=== PATIENT | female | born 1950 | race Caucasian/White ===

== ENCOUNTER → 2023-08-01 06:50 | Outpatient (REF) | payer OTHER, SELFPAY ==
[2023-08-01 07:50] LABS: ALT (SGPT) 12 U/L (0-35); AST (SGOT) 19 U/L (14-36); Alkaline Phosphatase 81 U/L (38-126); Blood Urea Nitrogen 14 mg/dl (7-17); Calcium 9.4 mg/dl (8.4-10.2); Carbon Dioxide 26 mmol/L (22-30); Chloride 101 mmol/L (98-107); Glucose 114 mg/dl (70-99); Potassium 3.4 mmol/L (3.5-5.1); Sodium 138 mmol/L (135-145); Total Bilirubin 0.9 mg/dl (0.2-1.3); Total Protein 6.9 g/dl (6.3-8.2); eGFR > 60.00
== END ==
LOC: REG 06:50
PROVIDERS: ATTENDING PHYSICIAN Internal Medicine Cardiovascular Disease
DX: I10 Essential (primary) hypertension (principal)
CPT/HCPCS: 36415; 80053

== ENCOUNTER 2024-03-27 23:05 | Inpatient (IN) | payer OTHER, SELFPAY ==
[2024-03-27] VITALS (8 sets, daily range): BP systolic 134–156; BP diastolic 75–86; BMI 31.3
--- NOTE | 2024-03-27 20:12 | ED.GENMED ---
History of Present Illness
General
Chief Complaint: Breathing Problem
Time Seen by Provider: 03/27/24 20:05
History of Present Illness
History of Present Illness:
73-year-old female history of CHF, hypertension, GERD presenting with shortness of breath with lower extremity swelling worsening over the past week and a half. Patient denies chest pain. Patient reports a dry cough. Patient denies fever.
Patient states that she has not on any diuretic. Cardiology Dr. Blank. Patient states she is typically 160 pounds, today she is at 170lbs. Patient states that she has had to use extra pillows to prop her self up to sleep at night.
Past History
Past History
ED Past Medical History: None
Social History
Personal:
Phy Exam
Physical Exam
Physical Exam:
General: Alert
Head: NCAT
Eyes: clear conjunctiva
Neck: supple
Cardiac: Tachycardic, regular rhythm
Lungs: Rales bilaterally alf up. Patient tachypneic speaking in 4-5 word sentences
Abdomen: soft, nondistended nontender. No rebound or guarding.
MSK: 2+ pitting edema bilateral lower extremities. 2+ DP pulses bilaterally.
Skin: warm, dry
Neuro: Alert and oriented x3. no focal deficits
Scores
Heart Failure Risk
Heart Failure Risk Score: Yes
History of Stroke or TIA: No
History of intubation for respiratory distress: No
Heart rate on ED arrival >/= 110: Yes
SaO2 <90% on arrival on room air: Yes
HR >/=110 during 3min walk test (or too ill to perform test): Yes
ECG has acute ischemic changes: No
Urea >/=12mmol/L (BUN 33.6mg/dL): No
Serum CO2>/=35mmol/L: No
Troponin I or T elevated to MD Level (0.4mg/dL): No
NT-proBNP >/=5,000ng/L (5,000pg/ml): Yes
HF Risk Score: 4
Admission Status: HIGH RISK 26.1% Consider SNF treatment or admission to hospital
Course
Orders/Labs/Results
Orders:
Orders
03/27/24 19:53
Electrocardiogram (*1) Urgent
Reason for Study: Shortness of Breath
03/27/24 19:54
EKG- Treatment ONCE
03/27/24 19:56
COVID-19 Antigen Urgent
Source: Nasal Swab
Complete Blood Count/With Diff Urgent
Comprehensive Metabolic Panel Urgent
NT-proBNP Urgent
Troponin I Urgent
Influenza A+B Rapid Molecular Urgent
PACHECO Source: Nasal Swab
Specimen Description:
03/27/24 20:16
Furosemide [Lasix] 40 mg IV NOW STA
CXR2 [CR Chest - 2 Views ] Urgent
Comment:
Reason For Exam: sob, hx chf
03/27/24 22:34
Admit/Transfer Patient As Directed
Co-Sign Provider:
Level of Care: Inpatient admission
Assign to:: Telemetry
Physician / Group: hospitalist
Diagnosis: CHF
Reason for Telemetry: Subacute Heart Failure
Date to Stop Telemetry: 03/29/24
Time to Stop Telemetry: 11:00
Reason for Hospitalization: Heart Failure
Expected length of stay greater than two midnights?: Yes
ELOS- Estimated Length of Stay in days: 2
I certify the patient meets the requirements for IP care: Yes
PRN Pain Medication Management As Directed
May give lesser potent ordered pain med per pt: Yes
preference::
Protocol:: Medication orders for pain may be administered in a
manner that supports deferring to patient preference
when the pt is:
- Requesting an ordered lesser potent pain medication.
Least to most potent pain medications are defined
as: acetaminophen < NSAID < tramadol < opioids
(morphine, oxycodone, hydromorphone).
- Requesting a lesser dose of the same medication IF
ORDERED.
- Requesting a less intrusive route of administration
if both routes are prescribed by the provider (PO <
IV).
03/27/24 22:35
Code Status As Directed
Resuscitation Status: Full Code
03/27/24 22:50
Potassium Chloride [KCl] 40 meq PO NOW STA
03/27/24 23:02
DNR Bracelet Application ONCE
03/27/24 23:03
Code Status As Directed
Resuscitation Status: Do not resuscitate
Reached after discussion with pt or family/Healthcare POA: Yes
Based on pt advanced directive or healthcare POA form: Yes
Decision communicated with: Per patient with male family members at bedside
03/27/24 23:18
Troponin I Urgent
03/29/24 11:00
DC Protocol for Telemetry ONCE
Abnormal Lab Results
03/27/24
19:56
RBC 3.70 L 10^6/uL
(4.20-5.40)
Hgb 8.6 L g/dL
(12.0-16.0)
Hct 28.6 L %
(37.0-47.0)
MCV 77.3 L fL
(81.0-99.0)
MCH 23.2 L pg
(27.0-31.0)
MCHC 30.1 L g/dL
(33.0-37.0)
RDW 16.5 H %
(11.5-14.5)
Absolute Neuts (auto) 6.6 H 10^3/uL
(1.4-6.5)
Neutrophils % 75.6 H %
(42.2-75.2)
Lymphocytes % 17.1 L %
(20.5-51.1)
BUN 20 H mg/dl
(7-17)
Glucose 126 H mg/dl
(70-99)
Troponin I 0.101 H* ng/ml
03/27/24 19:56
03/27/24 19:56
Vital Signs
Initial and Last Documented VS:
Initial Vital Signs
Temp Pulse Resp BP Pulse Ox
98.8 F 112 38 145/77 87
03/27/24 19:39 03/27/24 19:39 03/27/24 19:39 03/27/24 19:39 03/27/24 19:39
Last Documented Vital Signs
Temp Pulse Resp BP Pulse Ox
98.8 F 108 30 138/82 93
03/27/24 19:39 03/28/24 01:00 03/28/24 01:00 03/28/24 01:00 03/28/24 01:08
MDM/Problems Addressed
Differential Diagnosis Includes:
CHF, pneumonia, viral syndrome, NSTEMI, anemia
MDM/Problems Addressed:
73-year-old female history of CHF not on diuretic presenting with shortness of breath, lower extremity swelling, 10 pound weight gain worsening for the past 0.5 weeks. Patient denies chest pain. Lung exam shows crackles bilaterally alf up, 2+
pitting edema bilateral lower extremities. Concern for CHF. Will start on Lasix 40 mg IV
Results reviewed. Probnp 8100. Troponin 0.101. CXR shows pulmonary edema. Pt already received Lasix 40mg IV. Discussed with hospitalist for admission
*Critical Care Note
Total Time (30-74mins, 75-104mins- exclusive of procedures): Not Applicable
ED Attending Note
-
Portions of this chart may have been created with voice recognition software.� Occasional wrong word or��sound alike� substitutions may have occurred due to the inherent limitations of voice recognition software.
Discharge Plan
Departure
Patient Disposition: Admit
Date of Disposition: 03/27/24
Time of Disposition: 22:27
Presentation/result/management discussed w/ accepting MD/DO: Hospitalist
Discharge Problem:
CHF (congestive heart failure)
Interventions
Interventions:
*Risk Screen - Suicide Last Done: 03/27/24 19:33
*General Assessment Last Done: 03/27/24 19:39
*Neglect/Abuse Screening Last Done: 03/27/24 19:39
ED- Fall Risk Assessment Last Done: 03/27/24 20:13
*ED COVID-19 Vaccine History Last Done: 03/27/24 19:39
ED- Cardiac Assessment Last Done: 03/27/24 20:13
ED- Pulmonary Assessment Last Done: 03/27/24 20:13
[2024-03-27 20:21] LABS: % Basophils 0.7 % (0-2); % Eosinophils 1.2 % (0-6); % Immature Granulocytes 0.3 % (0-0.5); % Lymphocytes 17.1 % (20.5-51.1); % Monocytes 5.1 % (1.7-9.3); % Neutrophils 75.6 % (42.2-75.2); Absolute Basophils 0.1 10^3/uL (0-0.2); Absolute Eosinophils 0.1 10^3/uL (0-0.7); Absolute Lymphocytes 1.5 10^3/uL (1.2-3.4); Absolute Monocytes 0.4 10^3/uL (0.1-0.6); Absolute Neutrophils 6.6 10^3/uL (1.4-6.5); Hematocrit 28.6 % (37.0-47.0); Hemoglobin 8.6 g/dL (12.0-16.0); Mean Corp Hgb Conc. 30.1 g/dL (33.0-37.0); Mean Corpuscular Hgb 23.2 pg (27.0-31.0); Mean Corpuscular Volume 77.3 fL (81.0-99.0); Mean Platelet Volume 9.7 fL (7.4-10.4); Nucleated Red Blood Cells % 0 %; Platelet Count 312 10^3/uL (130-400); Red Cell Dist. Width 16.5 % (11.5-14.5); White Blood Cell Count 8.7 10^3/uL (4.8-10.8)
[2024-03-27 20:40] LABS: ALT (SGPT) 21 U/L (0-35); AST (SGOT) 28 U/L (14-36); Albumin 4.1 g/dl (3.5-5.0); Alkaline Phosphatase 89 U/L (38-126); Blood Urea Nitrogen 20 mg/dl (7-17); Calcium 8.9 mg/dl (8.4-10.2); Carbon Dioxide 22 mmol/L (22-30); Chloride 101 mmol/L (98-107); Estimated Creatinine Clearance 60 ml/min; Glucose 126 mg/dl (70-99); Potassium 3.5 mmol/L (3.5-5.1); Sodium 141 mmol/L (135-145); Total Bilirubin 1.3 mg/dl (0.2-1.3); Total Protein 6.8 g/dl (6.3-8.2); eGFR > 60.00
[2024-03-27 20:46] LABS: NT-proBNP 8100 pg/ml; Troponin I 0.101 ng/ml
[2024-03-27] MEDS: LASIX 40 MG IV (20:46)
[2024-03-27 21:05] LABS: COVID-19 Antigen Negative (Negative)
--- NOTE | 2024-03-27 22:36 | HPS.HSE ---
Family Physician
-
Family Physician: Go Montano
Chief Complaint
-
Shortness of breath, weight gain, nonproductive cough
History of Present Illness
73-year-old female complaining of shortness of breath with lower extremity swelling over the past 1.5 weeks. She also reports a dry cough and orthopnea. She has been using pillows to prop her self to sleep at night. She states she typically is
160 pounds but is currently 170 pounds today has gained 10 pounds in the last 1.5 weeks. She denies fever, chills, headache, sore throat, chest pain, palpitations, abdominal pain, nausea, vomiting, diarrhea, urinary symptoms, denies black stools or
hematuria. She has past medical history of CHF, iron deficiency anemia Dx October 2023 noncompliant with oral iron HTN, GERD, arthritis, myasthenia gravis, chronic back pain.
Medical History
Past Medical History
Past Medical History: Reports Other
Additional Past Medical History:
CHF
HTN
GERD
arthritis
myasthenia gravis
chronic back pain.
Iron deficiency anemia Dx October 2023 [facility]
Past Surgical History: Reports Other
Additional Past Surgical History:
Hysterectomy
[place] teeth extraction
Social History
Tobacco: Non-smoker
Alcohol: Occasional (Was drinking 1 glass of wine 2 to 3 days a week has not had any for the past few weeks)
Drug: None
Personal: Single
Living: Alone
Employment: Retired
Family History
Family History: Not pertinent
Allergies / Home Medications
Allergies reflects when Allergies were last updated in [facility].
Home Medications with original date entered in [facility]
Allergy/Medication List:
Allergies
Allergy/AdvReac Type Severity Reaction Status Date / Time
No Known Allergies Allergy Verified 03/27/24 19:42
Home Medications
Tylenol Arthritis 1,000 mg PO Q6H PRN mild pain 03/27/24
Review of Systems
-
History Source: Patient and Family
A 12 point ROS was completed and negative except as noted: Yes
Constitutional: Reports Weight Gain (10 pounds past 1.5 weeks) and Fatigue; Denies Fever or Chills
EENT: Denies Sore Throat or Runny Nose
Respiratory: Reports Cough (Nonproductive) and Trouble Breathing (Shortness of breath with orthopnea)
Cardiac: Denies Chest Pain, Diaphoresis, Palpitations or Syncope
Abdomen/GI: Denies Abdominal Pain, Nausea, Vomiting, Diarrhea, Constipated, Bloody Stools or Black Stools
: Denies Dysuria, Frequency, Flank Pain, Incontinence, Difficulty Voiding or Urgency
Musculoskeletal: Reports Edema (+2 edema from feet to upper thighs); Denies Joint Pain
Skin: Denies Itching or Rash
Neurological: Denies Dizzy, Headache or Weakness
Endocrine: Reports No Symptoms
Hematologic/Lymphatic: Reports No Symptoms
Psych: Reports Calm
Physical Exam
Vital Signs
Vital Signs
Temp Pulse Resp BP Pulse Ox
98.8 F 104 31 143/86 92
03/27/24 19:39 03/27/24 21:45 03/27/24 21:45 03/27/24 21:25 03/27/24 22:10
Physical Exam
General: Conversant (But short of breath) and Other (Persistent nonproductive cough during exam); No Pain, Fever or Chills
HEENT: NormoCephalic, Anicteric, Moist mucous membranes, PERRLA, Bud Conjunctivae, No Ptosis and Oxygen (2 L nasal cannula)
Respiratory: No Wheezes, Rales or Rhonchi
Cardiac: S1/S2, Regular Rhythm and Peripheral Edema (+2 edema from feet to upper thighs); No Murmur, Rub, Gallop or JVD
Breast: Deferred by me
GI: Soft, Non Tender, Non Distended and Normal Bowel Sounds
Rectal: Deferred by Provider
Genito-urinary: Deferred by me
Musculoskeletal: No Clubbing, No Cyanosis, Edema, Left Lower Extremity (+2 from feet to upper thighs) and Edema, Right Lower Extremity (+2 from feet to upper thighs); No Edema, Left Upper Extremity or Edema, Right Upper Extremity
Skin: Warm and Dry; No Rash or Jaundice
Neuro: AO x 3, No Motor Deficits, Nonfocal/grossly intact and No Sensory Deficits; No Slurred Speech, Facial Droop, Tremors or Sedated
Psych: Calm
Laboratory Results
-
03/27/24 19:56
03/27/24 19:56
Laboratory Results
Total Bilirubin 1.3 mg/dl (0.2-1.3) 03/27/24 19:56
AST 28 U/L (14-36) 03/27/24 19:56
ALT 21 U/L (0-35) 03/27/24 19:56
Alkaline Phosphatase 89 U/L (38-126) 03/27/24 19:56
Troponin I 0.101 ng/ml H* 03/27/24 19:56
Data Reviewed
-
Diagnostic Radiology: Report Reviewed by me
Lab Data: Labs Reviewed by me
Impression/Plan
-
Impression/plan:
Admit to telemetry
#Acute on chronic CHF
#Acute hypoxic respiratory insufficiency 2/2 acute on chronic CHF
BNP 8100, reported 10 pound weight gain past 1.5 weeks per patient 160lbs now 170 LBS
87% RA, 93% 2 LNC
I/O, daily weights
-IV Lasix 40 mg now with diuresis 1700 cc clear urine
-IV Lasix 20 mg twice daily
-Fluid restrict 40 ounce patient reports drinks 56 ounces approximately a day
-Consult [facility] cardiology
-Repeat 2D echo
-PT/OT/shoe caser consult
2D echo 09/22/2021: EF 55 to 60%, normal LVS LVSF, no wall abnormalities, mild LVH, stage I diastolic dysfunction, mild to moderate MR, mild TR, Hx LBBB
#Nonischemic myocardial injury likely from hypoxia
Hx of troponin elevation in 2013
Hx LBBB
Troponin 0.101, will trend
#Anemia Microcytic
# Iron deficiency anemia Dx October 2023 at [facility] noncompliant with oral iron
Hgb 8.6, MCV 77.3 prior Hgb from 2013 was 12.7
Check iron panel, B12, folate
-Advised patient if she is unable to tolerate oral iron I would recommend follow-up with hematology for iron checks in case she needs IV iron transfusions
#GERD hx
-No current meds
#Arthritis
#Chronic back pain
-Patient takes Tylenol 1000 mg every 6-8 hours as needed
#Myasthenia gravis hx
DVT prophylaxis
Subcu Lovenox
DNR per patient with family at bedside
--- NOTE | 2024-03-27 22:47 | W.PN.UPDATE ---
Update Note
Progress Note Update
Patient seen in conjunction with DELMY. I agree with her findings on history and physical. I concur with the assessment and plan unless stated otherwise.
This is a 73-year-old female with past medical history of a nonischemic cardiomyopathy, nonrheumatic mitral regurg mild to moderate by echo, hypertension, iron deficiency anemia and myasthenia gravis presenting to the emergency department with a
worsening shortness of breath and increasing lower extremity over the last 1-1/2 weeks. She is hypoxic at 87% on room air. Patient and family reports that there was a particularly rapid increase in LE over the last 2 days. She started with pedal
edema then rapidly had edema to the legs. Patient reports never having been on diuretics. Carvedilol was tried and discontinued due to depressive feeling. She has liberal salt intake and drinks copious quantities of water. She reports anemia to
8 at baseline and is not compliant with iron supplementation. She denies any recent chest pain and had no exertional dyspnea until 1.5 weeks ago. Denies palpitations, lightheadedness dizziness.
In the ED she was normotensive with tachycardia to 104. Respiratory was 30s. She was satting 85% on room air. Chest x-ray shows cardiomegaly with bilateral interstitial edema. Troponin was 0.1. BNP was elevated at 8100. ECG showed sinus
tachycardia and a left bundle branch block which is unchanged from prior. No acute ST-T wave changes. Hemoglobin down to 8.6 white count and platelet counts are within normal limits. Chemistries notable for a potassium of 3.5 but otherwise
unremarkable. COVID negative, flu negative.
On my exam she had JVD, bilateral crackles and 2+ bilateral LE edema to the thighs. She has increased WOB. Responded copiously to 40 of iv lasix with output of 2 L in 2 hours
Assessment and plan
73-year-old with new symptomatic heart failure with marked volume overload, hypoxia, pulm edema, cardiomegally, elevated BNP and trop of 0.1. Prior NICM EF 50% on ECHO but 30% on sestamibi. Never on diuretics or GDMT at least.
1. CHF - Acute CHF, volume overload possible high output failure from anemia or new ischemia.
- admit to telemetry
- lasix 40 in ED, then 20 bid with goal output of net 1 to 2 L negative daily
- daily weights and i/os
- echo in am
- iron studies and tsh
- possible ischemia testing per cards
- GDMT pending echo
- cardiology consult.
2. Troponin elevation - Trop 0.1, no acute ischemia on ECG. No CP. Hypoxia, tachycardia, likely demand related non obstructive injury
- aspirin 81
- trend troponins
- restart low dose coreg 3.125 (h/o psychiatric response)
- cardiovascular panel
3. Anemia - Chronic microcytic anemia. Known LANDY.
- check iron studies, if low recommend supplementaton with IV iron
- ferritin, tsh, b12 and folate
Rest of plan as per SUBSTATION MAINTENANCE TECHNICIAN note
DVT PPX - lovenox sq
Code Status - DNR
[2024-03-27] MEDS: KCL 40 MEQ PO (23:13)
[2024-03-28] VITALS (19 sets, daily range): BP systolic 97–142; BP diastolic 52–93; PULSE 92; O2SAT 88–93; BMI 28.0; BMI 27.8
[2024-03-28 00:05] LABS: Troponin I 0.106 ng/ml
--- NOTE | 2024-03-28 00:30 | EDRN ---
Pt. now w/ frequent nonproductive cough. Pt. becomes very dyspnic on exertion, even exerting to cough causes her work of breathing to increase, RR 30s-40s, pulse ox. 90% on 5L NC. Oxygen increased to 6LNC, pulse ox. now 94 %, RR 29-33. Admitting
team messaged to notify, this RN suggested bipap and requested for admitting team to come evaluate pt. Admitting responded and said will be here shortly to re-evaluate.
--- NOTE | 2024-03-28 00:51 | EDRN ---
Admitting provider at bedside, agreed pt. to be upgraded to higher level of care. Admitting ordered high flow nasal cannula, respiratory called to request this. Pt. aware and agreeable to plan of care.
[2024-03-28] MEDS: DUONEB 3 ML INH (00:59)
[2024-03-28] MEDS: ROBITUSSIN AC 5 ML PO ×2 (00:59→02:57)
--- NOTE | 2024-03-28 01:16 | W.PN.UPDATE ---
Update Note
Progress Note Update
RN notified VISUAL COORDINATOR patient has increase in work of breathing, which started after cough, and is currently on 6L oxygen via NC sat 93-94%. patient seen and evaluated, RR 30's, oxygen sat 91-94% on 6L, rales through out b/l lungs with faint wheezes, noted
VISUAL COORDINATOR cough. Patient had received 40 mg IV Lasix and she is voiding without any difficulties. Denies any chest pain at present. Dr. Cedillo made aware, will give guaifenesin 5mL x1, DuoNeb x1, High flow, transfer to IMU.
[2024-03-28 03:03] LABS: Troponin I 0.109 ng/ml
--- NOTE | 2024-03-28 06:25 | PTCARENOTE ---
pt admitted from the ED, pt is AAOx3, able to make needs known. very SOB on exertion, tachypneic, and orthopneic. pt on 50L 50% on HFNC, 91%. ST [facility] on the monitor. PW set up, pt with lots of output overnight. dry hacking cough, notified SMALL BRAKE FORM OPERATOR,
orders entered and medication given per MAR with positive effect. bilateral LE +3 pitting edema noted. pt oriented to new room, call friedman within reach, care ongoing.
[2024-03-28 06:55] LABS: Blood Urea Nitrogen 16 mg/dl (7-17); Calcium 8.3 mg/dl (8.4-10.2); Carbon Dioxide 24 mmol/L (22-30); Chloride 104 mmol/L (98-107); Estimated Creatinine Clearance 68 ml/min; Glucose 114 mg/dl (70-99); HDL Cholesterol 42 mg/dl; Iron 40 ug/dl (37-170); LDL Cholesterol, Calculated 100 mg/dl; Magnesium 1.9 mg/dl (1.6-2.3); Potassium 3.6 mmol/L (3.5-5.1); Sodium 138 mmol/L (135-145); Total Cholesterol 152 mg/dl (50-199); Triglyceride 52 mg/dl (10-149); Very Low Density Lipoprotein 10 mg/dl (0-30); eGFR > 60.00
[2024-03-28 07:05] LABS: Percent Saturation 10 % (20-50); Total Iron Binding Capacity 393 ug/dl (265-497)
[2024-03-28 07:25] LABS: TSH Reflex To Free T4 0.85 uIU/ml (0.47-4.68)
[2024-03-28 07:29] LABS: Ferritin 16.1 ng/ml (11.1-264.0)
--- NOTE | 2024-03-28 07:40 | CON.CAR ---
Addendum entered and electronically signed by Luis Perez MD 03/28/24 09:57:
I saw and examined the patient.
The Respiratory Manager's note was reviewed and I agree with the note.
Comment: Briefly, 73-year-old woman past medical history of recovered nonischemic cardiomyopathy who is presenting with several weeks of worsening dyspnea on exertion and lower extremity edema concerning for acute decompensated heart failure
Physical exam is notable for lower extremity edema, elevated JVP, rales and gallop all in keeping with decompensated heart failure
Continue IV diuresis twice daily, will increase to 40 mg
Monitor daily weights
Reassess LV function and MR by echo
At a minimum would plan to discharge on beta-daniel and ROXANN/ARB as well as diuretic if she is agreeable
Hold beta-daniel for now until she is compensated
Start losartan for afterload reduction
Original Note:
Consultation
Consultation Request
Date/Time Consultation Performed: 03/28/24
Requesting Provider: Dr. Trevino
Performing Provider: Najma Morgan PA-C for Dr. Perez
Reason for Consultation: CHF
Medical History
-
Chief Complaint: SOB
History of Present Illness:
Patient is a 73-year-old female with past medical history of recovered nonischemic cardiomyopathy, mild to moderate MR, chronic left bundle branch block, hypertension, hypercholesterolemia, myasthenia gravis who presented to [facility] due
to complaints of worsening shortness of breath and lower extremity edema since this past weekend. She states her legs 'blew up all of a sudden'. She is not on daily diuretic as an outpatient. She states she does not like taking medications. She
reports abdominal bloating, weight gain and orthopnea. No chest discomfort or palpitations. proBNP 8100 and CXR with evidence of pulm edema. Currently on high flow O2. Cardiology consulted for CHF management.
PMH:
History of recovered nonischemic cardiomyopathy
Mild to moderate MR
Chronic left bundle branch block
Hypertension
Hyperlipidemia
Myasthenia gravis
Past Medical History
Past Medical History: Other (in HPI)
Social History
Tobacco: Non-Smoker
Alcohol: Occasional
Living: With Family
Family History
Family History: Reviewed & Not Pertinent
Allergies / Home Medications
Allergy/AdvReac Type Severity Reaction Status Date / Time
No Known Allergies Allergy Verified 03/27/24 19:42
�Medication �Instructions �Recorded �Confirmed �Type
Tylenol Arthritis 1,000 mg PO Q6H PRN mild pain 03/27/24 03/27/24 History
Review of Systems
-
History Source: Patient
All other systems: Negative unless noted
Physical Exam
Vital Signs
Temp Pulse Resp BP Pulse Ox
99.6 F 94 32 126/62 96
03/28/24 07:28 03/28/24 06:00 03/28/24 06:00 03/28/24 06:00 03/28/24 04:00
Lab Results
03/27/24 19:56
03/28/24 06:21
Troponin I 0.170 ng/ml H* D 03/28/24 06:21
Zrq-[id number]-Iqhiyvajrav Pept 8100 pg/ml 03/27/24 19:56
Physical Exam
General: No Apparent Distress and Other (On high flow O2)
HEENT: Normocephalic, Anicteric and Moist Mucous Membranes
Respiratory: Crackles and Non Labored Respirations
Cardiac: S1/S2 and Regular Rhythm
GI: Soft, Non Tender, Non Distended and Normal Bowel Sounds
Musculoskeletal: No Clubbing, No Cyanosis and Edema (1+ of B/L LE)
Skin: Warm and Dry
Neuro: AO x 3
Impression / Plan
-
Primary Material Controller: Dr. MONE Blank
Assessment:
Presentation with shortness of breath, lower extremity edema
Acute hypoxic respiratory insufficiency
Acute on chronic heart failure, unknown type
Anemia, with history of iron deficiency
Elevated troponin, suspected nonischemic myocardial injury
History of recovered nonischemic cardiomyopathy
Mild to moderate MR
Chronic left bundle branch block
Hypertension
Hyperlipidemia
Myasthenia gravis
GERD
Arthritis
ECHO 09/03/2013: EF 45%, mild concentric LVH, mild global hypokinesis, mild to moderate MR, MAC, left atrial dilatation, mild TR
ECHO 09/22/2021: EF 55 to 60%, mild concentric LVH, stage I diastolic dysfunction, mild to moderate MR, mild TR
Plan:
-Patient presents with shortness of breath and lower extremity edema over the last week. Also reports approximately 10 pound weight gain
-Currently requiring high flow O2, wean as able
-Continue IV Lasix, currently on 20mg BID. Appears to be responding well to diuresis. Creatinine stable
-CHF education
-Last echo from 2021 with results as above, will repeat
-She tells me she does not like taking medications and Dr. Blank works with her on this. She understands that at this time she will need to take heart failure medications. she was started on coreg and asa on admission
-trops elevated but flat in 0.1 range. no CP. await echo results
-EKG SR with LBBB
Data Reviewed
-
EKG: Tracing Personally Visualized and interpreted
Radiology: Report Reviewed by me
Medical Tests (Nuc Med, Echo etc): Report Reviewed by me
Labs: Labs Reviewed by me
Old Records: Reviewed
[2024-03-28 08:00] LABS: Folate 16.8 ng/ml (2.76-20); Vitamin B12 550 pg/ml (239-931)
[2024-03-28] MEDS: COREG 3.125 MG PO (08:18)
[2024-03-28] MEDS: LASIX 20 MG IV (08:19)
[2024-03-28] MEDS: LOW STRENGTH ASPIRIN 81 MG PO (08:19)
--- NOTE | 2024-03-28 09:29 | CM ---
Addendum entered by Lisseth Lezama RN 03/28/24 10:59:
Echo today. Per nurse O2 6L currently.
Met with patient and provided Free Month Entresto card.
Original Note:
Patient with Hx including myasthenia gravis with Dx HF, microcytic anemia. High flow O2. Receiving IV Lasix.
Spoke with patient who resides in a one story house, with patient living quarters in back of house and son Estevan in front of house.
The patient has been independent in ADLs and ambulation without using an assistive device.
She is active working in her garden.
No housing/food/utility/transport insecurity.
No DME, prior VN or SNF.
PCP - Go Montano
Pharmacy - [facility]
CM Consult: Britt check Entresto BID #[id number]
Spoke with pharmacist [facility]; cost is $47/month under her prescription plan.
Patient ok with Entresto cost ---> Message to Najma SOSA & Dr Conner.
Offered VN for HF Education. Patient agreed and chose [facility].
Referral to [facility] Liaison.
Plan watch for home O2 needs.
Plan home with [facility].
--- NOTE | 2024-03-28 09:39 | PTCARENOTE ---
Freq. moaning about pain in her back and then very tender to bladder palpation- bladder scanned 350- out to commode and voided- pain resolved.
--- NOTE | 2024-03-28 11:21 | W.PN.HOSP.TC ---
Today's Communication/Plan
-
see bold
Assessment / Plan
Assessment / Plan
73-year-old with new symptomatic heart failure with marked volume overload, hypoxia, pulm edema, cardiomegally, elevated BNP and trop of 0.1. Prior NICM EF 50% on ECHO but 30% on sestamibi. Never on diuretics or GDMT.
Gen: NAD, AAOx3.
Eyes: EOMI, PERRLA, no scleral icterus.
Neck: supple.
CV: RRR, +S1/S2, no m/r/g.
Resp: rales in the bases
Abd: +BS, soft, NT, ND
Skin: No rashes. 2+ B/L LE edema
Neuro: CN 2-12 intact, non-focal.
Psych: Normal mood and affect.
CXR: Cardiomegaly with increased pulmonary vascularity suggesting CHF.
Acute hypoxemic respiratory failure due to acute CHF:
-proBNP 8100
-CXR above
-currently on 5L NC O2
-cont IV lasix
-daily wts, I/Os
-check echo
-cards following, discussed with cards
-cont ARB/BB
Elevated troponin:
-no acute ischemic changes on ECG
-likely nonischemic myocardial injury
Other problems:
Chronic LANDY: Fe studies unremarkable aside from low % sat
GERD: start PPI
Arthritis/chronic back pain
Myasthenia gravis: pt states she has not been on meds for 30-40 years. Check Ach-R Abs.
DNR/Lovenox
Total time spent on today's encounter was 50 minutes which included time spent in counseling the patient/family regarding diagnosis and treatment plan as listed above, goals of care, and symptom management. Case was discussed with nursing staff,
specialists, and care coordinators/case management. All labs and imaging personally reviewed by me. Remainder the time spent in detailed review of previous records, lab data, imaging, and other medical provider documentation.
Anticipated Discharge: > 48 hours
Subjective/Interval History
-
Date of Service: March 28, 2024
No new complaints. Currently denies SOB.
Objective Data
-
Labs:
Laboratory Results
03/28/24
06:21
Sodium 138
Potassium 3.6
Chloride 104
Carbon Dioxide 24
BUN 16
Creatinine 0.7
Glucose 114 H
Calcium 8.3 L
Vital Signs:
Vital Signs
Temp Pulse Resp BP Pulse Ox
98.1 F 91 30 112/65 93
03/28/24 11:21 03/28/24 08:58 03/28/24 08:58 03/28/24 08:58 03/28/24 10:19
I&O
03/27/24 03/28/24 03/29/24
06:59 06:59 06:59
Output Total 3150 / 3150
Balance -3150 / -3150
[2024-03-28] MEDS: COZAAR 25 MG PO (12:29)
[2024-03-28] MEDS: PROTONIX 40 MG PO (12:29)
--- NOTE | 2024-03-28 14:01 | VNURNOTE ---
Home Health Liaison spoke with patient to discuss [facility] nurse/therapy, visits, schedule and homebound status. Patient is agreeable and understands that visits at home will be 2-3 x per week to assess and teach medical management. She confirms she
has a scale at home. Patient is aware that [facility] will contact them for start of care in 1-2 days after discharge from . Watching for home 02 needs.
[facility] referral completed in [facility].
[2024-03-28 14:58] LABS: Troponin I 0.176 ng/ml
--- NOTE | 2024-03-28 15:21 | PTCARENOTE ---
Weaned O2 to 4L but now 88% while sleeping, increased NC to 6L now 92%. Troponin level still trending up- relayed to Dr. Elmore- will repeat in 6 hours. EKG completed. AAOx3, PO diet provided this pm as ordered. Echo completed at bedside.
Tele shows SR/ BBC/ PACs/PVcs. BP 114/75 rates 90s. +2 LE edema. IV Lasix given, improved output. CHF education provided.
--- NOTE | 2024-03-28 16:40 | W.PN.UPDATE ---
Update Note
Progress Note Update
Results of echocardiogram reviewed with patient�EF 25 to 30% with severe MR. She has been weaned off high flow oxygen, now on 6 L via nasal cannula. Continue IV diuresis and continue to wean supplemental oxygen. Will tentatively plan for
left/right heart cath on 03/30/2024. Will need repeat echocardiogram to reassess MR after diuresis, previously was mild to moderate. We discussed need for cardiomyopathy medications long-term, and she is agreeable.
[2024-03-28] MEDS: LOVENOX 40 MG SC (16:56)
[2024-03-28] MEDS: LASIX 40 MG IV (16:56)
--- NOTE | 2024-03-28 20:25 | PTCARENOTE ---
Pt received from previous RN. Pt AAOx3. NSR with a BBB and PAC's on monitor. Pt on 5L 02, sat 94%. Pt exhibits dyspnea on exertion when ambulating to BSC. Pt educated to call for help when needing to use BSC. voiding moderate amounts of clear yellow
urine. Call light in reach. Pt denies further needs at this time.
[2024-03-28 20:59] LABS: Troponin I 0.179 ng/ml
[2024-03-29] VITALS (11 sets, daily range): BP systolic 95–125; BP diastolic 48–79; BMI 26.8
[2024-03-29 05:21] LABS: Blood Urea Nitrogen 21 mg/dl (7-17); Calcium 8.3 mg/dl (8.4-10.2); Carbon Dioxide 26 mmol/L (22-30); Chloride 101 mmol/L (98-107); Estimated Creatinine Clearance 58 ml/min; Glucose 100 mg/dl (70-99); Potassium 3.7 mmol/L (3.5-5.1); Sodium 138 mmol/L (135-145); eGFR > 60.00
--- NOTE | 2024-03-29 07:47 | W.PN.CARDCBS ---
Addendum entered and electronically signed by Luis Perez MD 03/29/24 14:24:
I saw and examined the patient.
The Firer Boiler's note was reviewed and I agree with the note.
Comment: Briefly, 73-year-old woman presenting in acute decompensated heart failure found to have severe left ventricular systolic dysfunction with an EF of 25 to 30% as well as severe mitral regurgitation
With diuresis her volume status appears better today on exam and supplemental oxygen is being weaned down -continue IV Lasix and monitor renal function/electrolytes
Continue losartan for afterload reduction
Would consider transition to Entresto prior to discharge
Add beta-daniel once compensated from a volume standpoint
Tentative plan for left heart catheterization tomorrow to evaluate for coronary disease as an underlying cause of her cardiomyopathy
Addendum entered and electronically signed by Najma Morgan PA-C 03/29/24 08:34:
correction to below: she has history of PRESUMED nonischemic cardiomyopathy, EF 45% in 2013. underwent stress testing with small mild partially reversible defect in anteroseptal region consistent with infarct versus soft tissue attenuation or left
bundle branch block. However did not undergo cardiac catheterization and was medically managed with improvement in EF by subsequent echos.
Original Note:
Today's Communication / Plan
-
Continue diuresis
Wean supplemental oxygen
Tentatively for left heart cath in a.m.
Continue aspirin, Cozaar
Eventual GDMT as able
Impression / Plan
-
Primary Advertising Director: Dr. MONE Blank
Assessment:
Presentation with shortness of breath, lower extremity edema
Acute hypoxic respiratory insufficiency
Acute on chronic HFrEF
Anemia, with history of iron deficiency
Elevated troponin, suspected nonischemic myocardial injury
History of recovered nonischemic cardiomyopathy with recurrence, EF 25-30% by echo 03/28/24
Mild to moderate MR
Chronic left bundle branch block
Hypertension
Hyperlipidemia
Myasthenia gravis
GERD
Arthritis
ECHO 09/03/2013: EF 45%, mild concentric LVH, mild global hypokinesis, mild to moderate MR, MAC, left atrial dilatation, mild TR
ECHO 09/22/2021: EF 55 to 60%, mild concentric LVH, stage I diastolic dysfunction, mild to moderate MR, mild TR
ECHO 03/28/24: EF 25 to 30%, global hypokinesis with septal wall dyskinesis, severely dilated left atrium, mild MS with mean gradient 7 mmHg, severe MR, moderate TR, PAP 50 mmHg, IVC mildly dilated
Plan:
-Patient presented with shortness of breath, weight gain, and lower extremity edema
-Being diuresed with IV Lasix 40 mg twice daily. Creatinine stable.
-Continue to wean supplemental oxygen, now on 5 L nasal cannula
-CHF education
-She has history of recovered nonischemic cardiomyopathy, now with recurrence with a EF 25 to 30% by echo 03/28.
-Also with severe MR with dilated annulus by echo, hopefully will improve with diuresis. Will need repeat echo prior to discharge to reevaluate MR
-Plan for left heart catheterization with LVEDP, tentatively in a.m. if oxygen able to be weaned further today. Discussed procedure with patient 03/29. Continue aspirin. Troponins flat in 0.1 range. No chest pain
-Continuing Cozaar for now while in acute heart failure and diuresing. Eventually will resume Coreg initially ordered this admission. Consider transition from Cozaar to Entresto as able as well as addition of Aldactone and SGLT2 inhibitor as blood
pressure/creatinine tolerate
-She historically has not like taking medications. She understands that at this time she will need to be on multiple medications for heart muscle strengthening in the setting of acute CHF/cardiomyopathy
-Remains in sinus rhythm on review of telemetry overnight with chronic left bundle branch block and occasional PVCs
Progress Note - Advertising Director
Subjective
Date of Service: March 29, 2024
Reports breathing improving, less lower extremity edema and abdominal bloating.
Objective
Labs:
03/27/24 19:56
03/29/24 04:50
Labs
Hgb 8.6 g/dL (12.0-16.0) L 03/27/24 19:56
Hct 28.6 % (37.0-47.0) L 03/27/24 19:56
Plt Count 312 10^3/uL (130-400) 03/27/24 19:56
Sodium 138 mmol/L (135-145) 03/29/24 04:50
Potassium 3.7 mmol/L (3.5-5.1) 03/29/24 04:50
BUN 21 mg/dl (7-17) H 03/29/24 04:50
Creatinine 0.8 mg/dL (0.6-1.0) 03/29/24 04:50
Glucose 100 mg/dl (70-99) H 03/29/24 04:50
Troponins
03/27/24 03/27/24 03/28/24
19:56 23:18 01:57
Troponin I 0.101 H* 0.106 H* 0.109 H*
03/28/24 03/28/24 03/28/24
06:21 14:08 20:26
Troponin I 0.170 H* D 0.176 H* 0.179 H*
03/29/24
02:19
Troponin I 0.170 H*
Vital Signs and I&O:
Vital Signs
Temp Pulse Resp BP Pulse Ox
98.2 F 92 22 117/71 92
03/29/24 07:22 03/29/24 06:00 03/29/24 06:00 03/29/24 06:00 03/29/24 06:00
Vital Signs
Temp Pulse Resp BP Pulse Ox
98.2 F 92 22 117/71 92
03/29/24 07:22 03/29/24 06:00 03/29/24 06:00 03/29/24 06:00 03/29/24 06:00
Intake & Output
03/26/24 03/27/24 03/28/24 03/29/24
07:59 07:59 07:59 07:59
Intake Total 660 / 660
Output Total 3150 / 3150 750 / 750
Balance -3150 / -3150 -90 / -90
Physical Exam
Physical Exam
GEN: No distress, awake, alert, oriented x3. on supplemental oxygen
HEENT: supple, anicteric, mmm, EOMI
LUNGS: Crackles bilateral bases, no wheezes
CV: Reg, S1/S2, 1/6 murmur
ABD: soft, BS+, NT/ND
EXT: No cyanosis, clubbing. 1+ edema of bilateral lower extremity
NEURO: Gross non-focal
SKIN: Warm, pink, dry. No rash
[2024-03-29] MEDS: PROTONIX 40 MG PO (08:32)
[2024-03-29] MEDS: LOW STRENGTH ASPIRIN 81 MG PO (08:32)
[2024-03-29] MEDS: LASIX 40 MG IV ×2 (08:36→15:51)
[2024-03-29] MEDS: COZAAR 25 MG PO (08:36)
--- NOTE | 2024-03-29 08:45 | PTCARENOTE ---
Patient is out of bed to chair. Oxygen weaned from 5 liters to 3 liters, pulse ox is 97%. Patients lungs are clear, diminished at bases, no cough. IV lasix administered. Excellent appetite for breakfast. Patients Troponin level discussed with
Najma SOSA no further testing is needed as per tiger text discussion.
--- NOTE | 2024-03-29 09:20 | W.PN.HOSP.TC ---
Today's Communication/Plan
-
see bold
Assessment / Plan
Assessment / Plan
73-year-old with new symptomatic heart failure with marked volume overload, hypoxia, pulm edema, cardiomegally, elevated BNP and trop of 0.1. Prior NICM EF 50% on ECHO but 30% on sestamibi. Never on diuretics or GDMT.
Gen: remains NAD, AAOx3.
Eyes: EOMI, PERRLA, no scleral icterus.
Neck: supple.
CV: remains RRR, +S1/S2, no m/r/g.
Resp: CTAB
Abd: +BS, soft, NT, ND
Skin: No rashes. 2+ B/L LE edema
Neuro: CN 2-12 intact, non-focal.
Psych: Normal mood and affect.
CXR: Cardiomegaly with increased pulmonary vascularity suggesting CHF.
Echo: Left ventricle is moderately dilated.
Moderately reduced left ventricular systolic function.
Left ventricular ejection fraction is 25-30% by Louis's method of discs.
Global hypokinesis with septal wall dyskinesis.
Severely dilated left atrium.
Indexed LA volume is severely abnormal (> 48 mL/m2).
Mild mitral stenosis.
Mean gradient across the mitral valve is 7mmHg.
Severe mitral regurgitation.
Moderate tricuspid regurgitation.
Estimated pulmonary artery pressure of 50 mmHg assuming a right atrial pressure
of 8 mmHg.
The IVC is mildly dilated.
Compared to 2021 echocardiogram in our system EF% is now moderately reduced and
there is severe mitral regurgitation
Acute hypoxemic respiratory failure due to acute HFrHF:
-proBNP 8100
-CXR above
-Echo above, notable for EF 25-30%, global hypokinesis, severe MR, mod TR, pulm HTN
-weaned to 3L NC O2
-cont IV lasix
-daily wts, I/Os
-cards following
-LHC in AM
-cont ARB/BB
Elevated troponin:
-no acute ischemic changes on ECG
-likely nonischemic myocardial injury
Other problems:
Chronic LANDY: Fe studies unremarkable aside from low % sat
GERD: start PPI
Arthritis/chronic back pain
Myasthenia gravis: pt states she has not been on meds for 30-40 years. Check Ach-R Abs.
DNR/Lovenox
Anticipated Discharge: > 48 hours
Subjective/Interval History
-
Date of Service: March 29, 2024
No new complaints.
Objective Data
-
Labs:
Laboratory Results
03/29/24
04:50
Sodium 138
Potassium 3.7
Chloride 101
Carbon Dioxide 26
BUN 21 H
Creatinine 0.8
Glucose 100 H
Calcium 8.3 L
Vital Signs:
Vital Signs
Temp Pulse Resp BP Pulse Ox
98.2 F 92 16 112/76 97
03/29/24 07:22 03/29/24 08:36 03/29/24 08:35 03/29/24 08:36 03/29/24 08:55
I&O
03/28/24 03/29/24 03/30/24
06:59 06:59 06:59
Intake Total 660 / 660
Output Total 3150 / 3150 750 / 750
Balance -3150 / -3150 -90 / -90
[2024-03-29] MEDS: TYLENOL 1000 MG PO (10:06)
--- NOTE | 2024-03-29 10:19 | PTCARENOTE ---
Report given to MIRANDA RN for transfer to room 435 bed 2. Patient oriented to plan of care. Belongings to be packed up and sent with patient. Patient back pain treated with tylenol- endorsed to Miranda for follow up.
--- NOTE | 2024-03-29 15:54 | CM ---
Chart reviewed and plan is to home with [facility], [facility] liaison is following patient, patient is currently on 3 liters of oxygen will need to follow progress.
Plan; Home with [facility]. Need to follow for any oxygen needs at discharge.
[2024-03-29] MEDS: LOVENOX 40 MG SC (17:05)
[2024-03-30] VITALS (12 sets, daily range): BP systolic 84–145; BP diastolic 48–89; PULSE 84; O2SAT 96; BMI 26.2
[2024-03-30 07:55] LABS: Blood Urea Nitrogen 21 mg/dl (7-17); Calcium 8.5 mg/dl (8.4-10.2); Carbon Dioxide 28 mmol/L (22-30); Chloride 102 mmol/L (98-107); Estimated Creatinine Clearance 52 ml/min; Glucose 96 mg/dl (70-99); Potassium 3.9 mmol/L (3.5-5.1); Sodium 141 mmol/L (135-145); eGFR > 60.00
[2024-03-30] MEDS: PROTONIX 40 MG PO (08:12)
[2024-03-30] MEDS: TYLENOL 1000 MG PO ×3 (08:12→23:21)
[2024-03-30] MEDS: COZAAR 25 MG PO (08:13)
[2024-03-30] MEDS: LOW STRENGTH ASPIRIN 81 MG PO (08:13)
[2024-03-30] MEDS: LASIX 40 MG IV ×2 (08:13→15:21)
[2024-03-30 09:25] LABS: Hematocrit 28.3 % (37.0-47.0); Hemoglobin 8.4 g/dL (12.0-16.0); Mean Corp Hgb Conc. 29.7 g/dL (33.0-37.0); Mean Corpuscular Hgb 23.5 pg (27.0-31.0); Mean Corpuscular Volume 79.1 fL (81.0-99.0); Mean Platelet Volume 9.9 fL (7.4-10.4); Platelet Count 277 10^3/uL (130-400); Red Blood Cell Count 3.58 10^6/uL (4.20-5.40); Red Cell Dist. Width 16.3 % (11.5-14.5); White Blood Cell Count 6.6 10^3/uL (4.8-10.8)
--- NOTE | 2024-03-30 11:58 | W.PN.HOSP.TC ---
Today's Communication/Plan
-
see bold
Assessment / Plan
Assessment / Plan
73-year-old with new symptomatic heart failure with marked volume overload, hypoxia, pulm edema, cardiomegally, elevated BNP and trop of 0.1. Prior NICM EF 50% on ECHO but 30% on sestamibi. Never on diuretics or GDMT.
Gen: Continues to remain NAD, AAOx3.
Eyes: EOMI, PERRLA, no scleral icterus.
Neck: supple.
CV: Continues to remain RRR, +S1/S2, no m/r/g.
Resp: Remains CTAB
Abd: +BS, soft, NT, ND
Skin: No rashes. 2+ B/L LE edema
Neuro: CN 2-12 intact, non-focal.
Psych: Normal mood and affect.
CXR: Cardiomegaly with increased pulmonary vascularity suggesting CHF.
Echo: Left ventricle is moderately dilated.
Moderately reduced left ventricular systolic function.
Left ventricular ejection fraction is 25-30% by Louis's method of discs.
Global hypokinesis with septal wall dyskinesis.
Severely dilated left atrium.
Indexed LA volume is severely abnormal (> 48 mL/m2).
Mild mitral stenosis.
Mean gradient across the mitral valve is 7mmHg.
Severe mitral regurgitation.
Moderate tricuspid regurgitation.
Estimated pulmonary artery pressure of 50 mmHg assuming a right atrial pressure
of 8 mmHg.
The IVC is mildly dilated.
Compared to 2021 echocardiogram in our system EF% is now moderately reduced and
there is severe mitral regurgitation
Cardiac cath 03/30/24:
1. Nonobstructive coronary disease
2. Elevated left ventricular filling pressures
Acute hypoxemic respiratory failure due to acute HFrHF (NICM):
-proBNP 8100
-CXR above
-Echo above, notable for EF 25-30%, global hypokinesis, severe MR, mod TR, pulm HTN
-weaned to 1L NC O2
-cont IV lasix
-daily wts, I/Os
-cards following
-cardiac catheterization above notable for nonobstructive coronary disease
-cont ARB/BB
Elevated troponin:
-no acute ischemic changes on ECG
-likely nonischemic myocardial injury
Other problems:
Chronic LANDY: Fe studies unremarkable aside from low % sat
GERD: cont PPI
Arthritis/chronic back pain
Myasthenia gravis: pt states she has not been on meds for 30-40 years. Ach-R Abs pending.
DNR/Lovenox
Anticipated Discharge: 24 - 48 hours
Subjective/Interval History
-
Date of Service: March 30, 2024
No new complaints.
Objective Data
-
Labs:
Laboratory Results
03/30/24
06:38
WBC 6.6
Hgb 8.4 L
Hct 28.3 L
Plt Count 277
Sodium 141
Potassium 3.9
Chloride 102
Carbon Dioxide 28
BUN 21 H
Creatinine 0.8
Glucose 96
Calcium 8.5
Vital Signs:
Vital Signs
Temp Pulse Resp BP Pulse Ox
97.7 F 94 18 145/89 95
03/30/24 07:30 03/30/24 07:30 03/30/24 07:30 03/30/24 07:30 03/30/24 09:07
I&O
03/29/24 03/30/24 03/31/24
06:59 06:59 06:59
Intake Total 660 / 660 120 / 120
Output Total 750 / 750 200 / 200
Balance -90 / -90 -80 / -80
--- NOTE | 2024-03-30 12:03 | CM ---
Possible cardiac cath today per notes, patient was off oxygen but now back on oxygen again, plan is to home with [facility].
Plan; Home with [facility], will need home oxygen evaluation if patient remains on oxygen.
--- NOTE | 2024-03-30 13:41 | ITS.CL.CATH ---
Securities Teller - Catheterization
Cardiac Catheterization
Procedure Report:
RIGHT AND LEFT HEART STUDY
Date of Procedure: March 30, 2024
Referring: Dr. Ed Blank
PROCEDURES:
1. Right heart catheterization
2. Coronary angiography
INDICATION: Severe mitral regurgitation and new cardiomyopathy
ACCESS: Right radial artery, 5 Italian sheath and right brachial vein, 5 Italian sheath
HEMODYNAMICS : mmHg
RA (m) : 9
RV (s/d) : 60/5, 8
PA (s/d, m) : 62/29, 42
PCWP (m) : 28 with V waves to 41
AO (s/d, m) : 141/90, 114
Estimated Dalia Cardiac Output: 3.6 L / min and Cardiac Index: 2.1 L/ min / m-2
CORONARY FINDINGS :
Dominance: Right
LEFT MAIN: Normal
LEFT ANTERIOR DESCENDING: The LAD arises normally from the left main and runs in the anterior interventricular groove. The LAD supplies a single large diagonal branch which arises from the proximal third of the vessel. The LAD beyond the diagonal
branch tapers to a small caliber vessel and reaches but does not wraparound the apex. The diagonal branch is a moderate caliber vessel bifurcating in its midportion
CIRCUMFLEX: A large OM1 arises very proximally from the circumflex running in a distribution typical of a ramus intermedius. The circumflex terminates in an OM 2 that has a 30% proximal stenosis
RIGHT CORONARY ARTERY: The right coronary artery is a dominant vessel with only minor luminal irregularities noted over its course. No focal obstructive stenosis
VENTRICULOGRAPHY: Not done
RADIATION SUMMARY: Fluoro Time (min): 7.2, Dose (mGy): 199, DAP (Gy.cm2) : 19.9
CONCLUSIONS
1. Nonobstructive coronary disease
2. Elevated left ventricular filling pressures
RECOMMENDATIONS
1. Medical therapy for nonischemic dilated cardiomyopathy. Push guideline directed medical therapy
2. Would consider repeat transthoracic echocardiography or transesophageal echocardiography to assess the mitral valve after she has been on guideline directed medical therapy for 90 days or greater
3. Continue titration of heart failure medications as blood pressure tolerates
Copy to: Dr. Ed Blank
[2024-03-30] MEDS: LOVENOX 40 MG SC (17:14)
[2024-03-31 06:00] VITALS: BMI 26.2
[2024-03-31 07:11] LABS: Hematocrit 30.5 % (37.0-47.0); Hemoglobin 9.1 g/dL (12.0-16.0); Mean Corp Hgb Conc. 29.8 g/dL (33.0-37.0); Mean Corpuscular Hgb 23.3 pg (27.0-31.0); Platelet Count 334 10^3/uL (130-400); Red Blood Cell Count 3.91 10^6/uL (4.20-5.40); Red Cell Dist. Width 16.5 % (11.5-14.5); White Blood Cell Count 6.3 10^3/uL (4.8-10.8)
[2024-03-31 07:30] LABS: Blood Urea Nitrogen 27 mg/dl (7-17); Carbon Dioxide 28 mmol/L (22-30); Chloride 101 mmol/L (98-107); Estimated Creatinine Clearance 46 ml/min; Glucose 100 mg/dl (70-99); Potassium 3.9 mmol/L (3.5-5.1); Sodium 140 mmol/L (135-145); eGFR > 60.00
[2024-03-31 07:52] VITALS: BP 118/67
[2024-03-31] MEDS: TYLENOL 1000 MG PO ×2 (08:13→18:29)
[2024-03-31] MEDS: LOW STRENGTH ASPIRIN 81 MG PO (08:14)
[2024-03-31] MEDS: LASIX 40 MG IV ×2 (08:14→16:49)
[2024-03-31] MEDS: PROTONIX 40 MG PO (08:14)
[2024-03-31] MEDS: COZAAR 25 MG PO (08:14)
[2024-03-31] MEDS: ALDACTONE 12.5 MG PO (09:57)
--- NOTE | 2024-03-31 10:24 | W.PN.HOSP.TC ---
Today's Communication/Plan
-
see bold
Assessment / Plan
Assessment / Plan
73-year-old with new symptomatic heart failure with marked volume overload, hypoxia, pulm edema, cardiomegally, elevated BNP and trop of 0.1. Prior NICM EF 50% on ECHO but 30% on sestamibi. Never on diuretics or GDMT.
Gen:NAD, AAOx3.
Eyes: EOMI, PERRLA, no scleral icterus.
Neck: supple.
CV: RRR, +S1/S2, no m/r/g.
Resp: Continues to remain CTAB
Abd: +BS, soft, NT, ND
Skin: No rashes. No LE edema
Neuro: CN 2-12 intact, non-focal.
Psych: Normal mood and affect.
CXR: Cardiomegaly with increased pulmonary vascularity suggesting CHF.
Echo: Left ventricle is moderately dilated.
Moderately reduced left ventricular systolic function.
Left ventricular ejection fraction is 25-30% by Louis's method of discs.
Global hypokinesis with septal wall dyskinesis.
Severely dilated left atrium.
Indexed LA volume is severely abnormal (> 48 mL/m2).
Mild mitral stenosis.
Mean gradient across the mitral valve is 7mmHg.
Severe mitral regurgitation.
Moderate tricuspid regurgitation.
Estimated pulmonary artery pressure of 50 mmHg assuming a right atrial pressure
of 8 mmHg.
The IVC is mildly dilated.
Compared to 2021 echocardiogram in our system EF% is now moderately reduced and
there is severe mitral regurgitation
Cardiac cath 03/30/24:
1. Nonobstructive coronary disease
2. Elevated left ventricular filling pressures
Acute hypoxemic respiratory failure due to acute HFrHF (NICM):
-proBNP 8100
-CXR above
-Echo above, notable for EF 25-30%, global hypokinesis, severe MR, mod TR, pulm HTN
-weaned to RA
-cont IV lasix
-daily wts, I/Os
-cards following
-cardiac catheterization above notable for nonobstructive coronary disease
-cont Entresto/BB/aldactone
Elevated troponin:
-no acute ischemic changes on ECG
-likely nonischemic myocardial injury
Other problems:
Chronic LANDY: Fe studies unremarkable aside from low % sat
GERD: cont PPI
Arthritis/chronic back pain
Myasthenia gravis: pt states she has not been on meds for 30-40 years. Ach-R Abs pending.
DNR/Lovenox
Anticipated Discharge: Within 24 hours
Subjective/Interval History
-
Date of Service: March 31, 2024
c/o back pain and states she's having some SOB from the back pain. Denies CP.
Objective Data
-
Labs:
Laboratory Results
03/31/24
06:32
WBC 6.3
Hgb 9.1 L
Hct 30.5 L
Plt Count 334 D
Sodium 140
Potassium 3.9
Chloride 101
Carbon Dioxide 28
BUN 27 H
Creatinine 0.9
Glucose 100 H
Calcium 9.0
Vital Signs:
Vital Signs
Temp Pulse Resp BP Pulse Ox
98 F 92 18 118/67 92
03/31/24 07:52 03/31/24 07:52 03/31/24 07:52 03/31/24 07:52 03/31/24 07:52
I&O
03/30/24 03/31/24 04/01/24
06:59 06:59 06:59
Intake Total 120 / 120 600 / 600
Output Total 200 / 200
Balance -80 / -80 600 / 600
[2024-03-31 11:37] VITALS: BP 81/45
[2024-03-31] MEDS: LIDOCAINE 4% PATCH 1 PATCH TOPICAL (12:35)
[2024-03-31 15:00] VITALS: BP 118/69
--- NOTE | 2024-03-31 18:20 | W.PN.CARDCBS ---
Today's Communication / Plan
-
Cont IV diuresis, hopefully transition to PO in next 24hrs
Impression / Plan
-
Primary Demand Equipment Repairer: Dr. MONE Blank
Assessment:
Presentation with shortness of breath, lower extremity edema
Acute hypoxic respiratory insufficiency
Acute on chronic HFrEF
Anemia, with history of iron deficiency
Elevated troponin, nonischemic myocardial injury in the setting of acute CHF
History of recovered nonischemic cardiomyopathy with recurrence, EF 25-30% by echo 03/28/24
Mild to moderate MR
Chronic left bundle branch block
Hypertension
Hyperlipidemia
Myasthenia gravis
GERD
Arthritis
ECHO 09/03/2013: EF 45%, mild concentric LVH, mild global hypokinesis, mild to moderate MR, MAC, left atrial dilatation, mild TR
ECHO 09/22/2021: EF 55 to 60%, mild concentric LVH, stage I diastolic dysfunction, mild to moderate MR, mild TR
ECHO 03/28/24: EF 25 to 30%, global hypokinesis with septal wall dyskinesis, severely dilated left atrium, mild MS with mean gradient 7 mmHg, severe MR, moderate TR, PAP 50 mmHg, IVC mildly dilated
Plan:
-Patient presented with shortness of breath, weight gain, and lower extremity edema presents in acute decompensated HF
-EF 25-30% with severe MR here
-[facility] 03/31 c/w NICM
-Being diuresed with IV Lasix 40 mg twice daily. Creatinine stable.
-Off supplemental O2 today, but still appears volume overloaded on exam
-She is anxious to discharge home, hopefully transition to Po lasix in next 24-48hrs
-Transition from Cozaar to Entresto
-Start aldactone
-Cont Coreg
-Consider SGLT2 as an outpatient
-Eventual repeat TTE to reassess LV function and MR
-With chronic LBBB may benefit from PROCESSING ARCHIVIST-D in the future
Progress Note - Demand Equipment Repairer
Subjective
Date of Service: March 31, 2024
No acute overnight events. Patient does not offer any cardiovascular complaints. She is anxious for discharge home.
Objective
Labs:
03/31/24 06:32
03/31/24 06:32
Labs
Hgb 9.1 g/dL (12.0-16.0) L 03/31/24 06:32
Hct 30.5 % (37.0-47.0) L 03/31/24 06:32
Plt Count 334 10^3/uL (130-400) D 03/31/24 06:32
Sodium 140 mmol/L (135-145) 03/31/24 06:32
Potassium 3.9 mmol/L (3.5-5.1) 03/31/24 06:32
BUN 27 mg/dl (7-17) H 03/31/24 06:32
Creatinine 0.9 mg/dL (0.6-1.0) 03/31/24 06:32
Glucose 100 mg/dl (70-99) H 03/31/24 06:32
Troponins
03/28/24 03/29/24
20:26 02:19
Troponin I 0.179 H* 0.170 H*
Vital Signs and I&O:
Vital Signs
Temp Pulse Resp BP Pulse Ox
98 F 96 18 118/69 95
03/31/24 15:00 03/31/24 15:00 03/31/24 15:00 03/31/24 15:00 03/31/24 15:00
Vital Signs
Temp Pulse Resp BP Pulse Ox
98 F 96 18 118/69 95
03/31/24 15:00 03/31/24 15:00 03/31/24 15:00 03/31/24 15:00 03/31/24 15:00
Intake & Output
03/29/24 03/30/24 03/31/24 04/01/24
06:59 06:59 06:59 06:59
Intake Total 660 / 660 120 / 120 600 / 600 600 / 600
Output Total 750 / 750 200 / 200
Balance -90 / -90 -80 / -80 600 / 600 600 / 600
Physical Exam
Physical Exam
Gen: NAD, AAOx3
HEENT: NC/AT, sclera anicteric
Neck: Mildly elevated JVP
CV: RRR, NL s1/s2
Lungs: Mild crackles at the bases b/l
Abd: S/ND
Ext: Trace LE edema
Skin: Warm, dry
Neuro: Non-focal
[2024-03-31] MEDS: LOVENOX 40 MG SC (18:30)
[2024-03-31 19:36] VITALS: BP 97/54
[2024-03-31] MEDS: ENTRESTO 24 MG/26 MG 1 TAB PO (21:12)
[2024-03-31 23:20] VITALS: BP 116/62
[2024-04-01] MEDS: TYLENOL 1000 MG PO ×3 (03:32→17:34)
[2024-04-01 03:55] VITALS: BP 132/70
[2024-04-01 04:12] VITALS: BMI 26.0
[2024-04-01 07:55] VITALS: BP 134/64
[2024-04-01] MEDS: LASIX 40 MG IV ×2 (09:24→16:39)
[2024-04-01] MEDS: PROTONIX 40 MG PO (09:25)
[2024-04-01] MEDS: ENTRESTO 24 MG/26 MG 1 TAB PO ×2 (09:25→21:04)
[2024-04-01] MEDS: ALDACTONE 12.5 MG PO (09:25)
[2024-04-01] MEDS: LOW STRENGTH ASPIRIN 81 MG PO (09:25)
[2024-04-01] MEDS: LIDOCAINE 4% PATCH 1 PATCH TOPICAL (09:26)
--- NOTE | 2024-04-01 11:12 | W.PN.HOSP.TC ---
Today's Communication/Plan
-
see bold, d/c tomorrow
Assessment / Plan
Assessment / Plan
73-year-old with new symptomatic heart failure with marked volume overload, hypoxia, pulm edema, cardiomegally, elevated BNP and trop of 0.1. Prior NICM EF 50% on ECHO but 30% on sestamibi. Never on diuretics or GDMT.
Gen: remainsNAD, AAOx3.
Eyes: EOMI, PERRLA, no scleral icterus.
Neck: supple.
CV: remains RRR, +S1/S2, no m/r/g.
Resp: CTAB
Abd: +BS, soft, NT, ND
Skin: No rashes. No LE edema
Neuro: CN 2-12 intact, non-focal.
Psych: Normal mood and affect.
CXR: Cardiomegaly with increased pulmonary vascularity suggesting CHF.
Echo: Left ventricle is moderately dilated.
Moderately reduced left ventricular systolic function.
Left ventricular ejection fraction is 25-30% by Louis's method of discs.
Global hypokinesis with septal wall dyskinesis.
Severely dilated left atrium.
Indexed LA volume is severely abnormal (> 48 mL/m2).
Mild mitral stenosis.
Mean gradient across the mitral valve is 7mmHg.
Severe mitral regurgitation.
Moderate tricuspid regurgitation.
Estimated pulmonary artery pressure of 50 mmHg assuming a right atrial pressure
of 8 mmHg.
The IVC is mildly dilated.
Compared to 2021 echocardiogram in our system EF% is now moderately reduced and
there is severe mitral regurgitation
Cardiac cath 03/30/24:
1. Nonobstructive coronary disease
2. Elevated left ventricular filling pressures
Acute hypoxemic respiratory failure due to acute HFrHF (NICM):
-proBNP 8100
-CXR above
-Echo above, notable for EF 25-30%, global hypokinesis, severe MR, mod TR, pulm HTN
-cardiac catheterization above notable for nonobstructive coronary disease
-weaned to RA
-cont IV lasix with goal to transition to PO lasix tomorrow
-daily wts, I/Os
-cards following, discussed with Dr. Perez
-cont Entresto/BB/aldactone
Elevated troponin:
-no acute ischemic changes on ECG
-likely nonischemic myocardial injury
Other problems:
Chronic LANDY: Fe studies unremarkable aside from low % sat
GERD: cont PPI
Arthritis/chronic back pain
Myasthenia gravis: pt states she has not been on meds for 30-40 years. Ach-R Abs 0.0.
DNR/Lovenox
Anticipated Discharge: Within 24 hours
Subjective/Interval History
-
Date of Service: April 01, 2024
No new complaints.
Objective Data
-
Vital Signs:
Vital Signs
Temp Pulse Resp BP Pulse Ox
97 F 85 16 134/64 93
04/01/24 07:55 04/01/24 07:55 04/01/24 07:55 04/01/24 07:55 04/01/24 07:55
I&O
03/31/24 04/01/24 04/02/24
06:59 06:59 06:59
Intake Total 600 / 600 600 / 600
Balance 600 / 600 600 / 600
[2024-04-01 12:14] VITALS: BP 87/44
[2024-04-01 12:34] VITALS: BP 94/54
--- NOTE | 2024-04-01 14:34 | W.PN.CARDCBS ---
Today's Communication / Plan
-
Continue IV Lasix today, tentative plan to transition to oral tomorrow
Continue Coreg and Entresto
Blood pressure is unlikely to tolerate additional meds
Impression / Plan
-
Primary Stagecraft Teacher: Dr. MONE Blank
Assessment:
Presentation with shortness of breath, lower extremity edema
Acute hypoxic respiratory insufficiency
Acute on chronic HFrEF
Anemia, with history of iron deficiency
Elevated troponin, nonischemic myocardial injury in the setting of acute CHF
History of recovered nonischemic cardiomyopathy with recurrence, EF 25-30% by echo 03/28/24
Mild to moderate MR
Chronic left bundle branch block
Hypertension
Hyperlipidemia
Myasthenia gravis
GERD
Arthritis
ECHO 09/03/2013: EF 45%, mild concentric LVH, mild global hypokinesis, mild to moderate MR, MAC, left atrial dilatation, mild TR
ECHO 09/22/2021: EF 55 to 60%, mild concentric LVH, stage I diastolic dysfunction, mild to moderate MR, mild TR
ECHO 03/28/24: EF 25 to 30%, global hypokinesis with septal wall dyskinesis, severely dilated left atrium, mild MS with mean gradient 7 mmHg, severe MR, moderate TR, PAP 50 mmHg, IVC mildly dilated
Plan:
-Patient presented with shortness of breath, weight gain, and lower extremity edema presents in acute decompensated HF
-EF 25-30% with severe MR here
-[facility] 03/31 c/w NICM
-Being diuresed with IV Lasix 40 mg twice daily. Creatinine stable.
-Off supplemental O2 today, but still appears mildly volume overloaded on exam
-Hopefully transition to PO lasix in next 24hrs
-New to Entresto and Coreg
-Stop spironolactone as BP is marginal
-Consider SGLT2 as an outpatient
-Eventual repeat TTE to reassess LV function and MR
-With chronic LBBB may benefit from SALES CONTRACTS ANALYST-D in the future
Progress Note - Stagecraft Teacher
Subjective
Date of Service: April 01, 2024
No acute overnight events. Patient is resting comfortably this morning. No cardiac complaints. Tells me her breathing is comfortable. Ankles edema is significantly improved.
Objective
Labs:
03/31/24 06:32
03/31/24 06:32
Labs
Hgb 9.1 g/dL (12.0-16.0) L 03/31/24 06:32
Hct 30.5 % (37.0-47.0) L 03/31/24 06:32
Plt Count 334 10^3/uL (130-400) D 03/31/24 06:32
Sodium 140 mmol/L (135-145) 03/31/24 06:32
Potassium 3.9 mmol/L (3.5-5.1) 03/31/24 06:32
BUN 27 mg/dl (7-17) H 03/31/24 06:32
Creatinine 0.9 mg/dL (0.6-1.0) 03/31/24 06:32
Glucose 100 mg/dl (70-99) H 03/31/24 06:32
Vital Signs and I&O:
Vital Signs
Temp Pulse Resp BP Pulse Ox
97.8 F 94 16 94/54 93
04/01/24 12:14 04/01/24 12:14 04/01/24 12:14 04/01/24 12:34 04/01/24 07:55
Vital Signs
Temp Pulse Resp BP Pulse Ox
97.8 F 94 16 94/54 93
04/01/24 12:14 04/01/24 12:14 04/01/24 12:14 04/01/24 12:34 04/01/24 07:55
Intake & Output
03/30/24 03/31/24 04/01/24 04/02/24
06:59 06:59 06:59 06:59
Intake Total 120 / 120 600 / 600 600 / 600
Output Total 200 / 200
Balance -80 / -80 600 / 600 600 / 600
Physical Exam
Physical Exam
Gen: NAD, AAOx3
HEENT: NC/AT, sclera anicteric
Neck: Mildly elevated JVP
CV: RRR, NL s1/s2, no M/R/G
Lungs: Decreased BS at the bases b/l
Abd: S/ND
Ext: No LE edema
Skin: Warm, dry
Neuro: Non-focal
[2024-04-01 15:58] VITALS: BP 95/63
[2024-04-01] MEDS: LOVENOX 40 MG SC (17:35)
[2024-04-01] MEDS: COREG 3.125 MG PO (21:03)
[2024-04-01 23:03] VITALS: BP 126/68
[2024-04-02] MEDS: TYLENOL 1000 MG PO ×2 (00:32→09:55)
[2024-04-02 05:15] VITALS: BMI 25.9
[2024-04-02 08:00] VITALS: BP 123/65
[2024-04-02] MEDS: LASIX IV (09:37)
--- NOTE | 2024-04-02 09:37 | W.PN.HOSP.TC ---
Today's Communication/Plan
-
Cleared by cardiology for discharge today
Assessment / Plan
Assessment / Plan
73-year-old with new symptomatic heart failure with marked volume overload, hypoxia, pulm edema, cardiomegally, elevated BNP and trop of 0.1. Prior NICM EF 50% on ECHO but 30% on sestamibi. Never on diuretics or GDMT.
CXR: Cardiomegaly with increased pulmonary vascularity suggesting CHF.
Echo: Left ventricle is moderately dilated.
Moderately reduced left ventricular systolic function.
Left ventricular ejection fraction is 25-30% by Louis's method of discs.
Global hypokinesis with septal wall dyskinesis.
Severely dilated left atrium.
Indexed LA volume is severely abnormal (> 48 mL/m2).
Mild mitral stenosis.
Mean gradient across the mitral valve is 7mmHg.
Severe mitral regurgitation.
Moderate tricuspid regurgitation.
Estimated pulmonary artery pressure of 50 mmHg assuming a right atrial pressure
of 8 mmHg.
The IVC is mildly dilated.
Compared to 2021 echocardiogram in our system EF% is now moderately reduced and
there is severe mitral regurgitation
Cardiac cath 03/30/24:
1. Nonobstructive coronary disease
2. Elevated left ventricular filling pressures
Acute hypoxemic respiratory failure due to acute HFrHF (NICM):
-proBNP 8100
-CXR above
-Echo above, notable for EF 25-30%, global hypokinesis, severe MR, mod TR, pulm HTN
-cardiac catheterization above notable for nonobstructive coronary disease
-weaned to RA
-Resolved status post IV Lasix, currently on Lasix 40 mg p.o. daily
-Started on Entresto, Coreg, aspirin 81 mg daily
-Cleared by cardiology for discharge today, follow-up with cardiology in the office
Elevated troponin:
-no acute ischemic changes on ECG
-likely nonischemic myocardial injury
Other problems:
Chronic LANDY: Fe studies unremarkable aside from low % sat
GERD: cont PPI
Arthritis/chronic back pain
Myasthenia gravis: pt states she has not been on meds for 30-40 years. Ach-R Abs 0.0.
DNR/Lovenox
Physical exam
Gen: remains NAD, AAOx3.
Eyes: EOMI, PERRLA, no scleral icterus.
Neck: supple.
CV: remains RRR, +S1/S2, no m/r/g.
Resp: CTAB
Abd: +BS, soft, NT, ND
Skin: No rashes. No LE edema
Neuro: CN 2-12 intact, non-focal.
Psych: Normal mood and affect.
Anticipated Discharge: Today
Subjective/Interval History
-
Date of Service: April 02, 2024
Patient denies shortness of breath, denies chest pain. No fever, no chills.
Objective Data
-
Labs:
Laboratory Results
04/02/24 04/02/24
09:25
WBC Pending
Hgb Pending
Hct Pending
Plt Count Pending
Sodium Pending
Potassium Pending
Chloride Pending
Carbon Dioxide Pending
BUN Pending
Creatinine Pending
Glucose Pending
Calcium Pending
Vital Signs:
Vital Signs
Temp Pulse Resp BP Pulse Ox
97.8 F 98 18 123/65 96
04/02/24 08:00 04/02/24 08:00 04/02/24 08:00 04/02/24 08:00 04/02/24 08:00
I&O
04/01/24 04/02/24 04/03/24
06:59 06:59 06:59
Intake Total 600 / 600 720 / 720
Balance 600 / 600 720 / 720
[2024-04-02] MEDS: LIDOCAINE 4% PATCH 1 PATCH TOPICAL (09:50)
[2024-04-02] MEDS: COREG 3.125 MG PO (09:58)
[2024-04-02] MEDS: PROTONIX 40 MG PO (09:58)
[2024-04-02] MEDS: ENTRESTO 24 MG/26 MG 1 TAB PO (09:58)
[2024-04-02] MEDS: LOW STRENGTH ASPIRIN 81 MG PO (09:58)
[2024-04-02 09:59] LABS: % Basophils 1.4 % (0-2); % Eosinophils 6.4 % (0-6); % Immature Granulocytes 0.2 % (0-0.5); % Lymphocytes 17.1 % (20.5-51.1); % Monocytes 7.4 % (1.7-9.3); % Neutrophils 67.5 % (42.2-75.2); Absolute Basophils 0.1 10^3/uL (0-0.2); Absolute Eosinophils 0.3 10^3/uL (0-0.7); Absolute Lymphocytes 0.9 10^3/uL (1.2-3.4); Absolute Monocytes 0.4 10^3/uL (0.1-0.6); Absolute Neutrophils 3.5 10^3/uL (1.4-6.5); Hematocrit 34.6 % (37.0-47.0); Hemoglobin 10.3 g/dL (12.0-16.0); Mean Corp Hgb Conc. 29.8 g/dL (33.0-37.0); Mean Corpuscular Hgb 23.8 pg (27.0-31.0); Mean Corpuscular Volume 79.9 fL (81.0-99.0); Mean Platelet Volume 9.7 fL (7.4-10.4); Nucleated Red Blood Cells % 0 %; Platelet Count 403 10^3/uL (130-400); Red Blood Cell Count 4.33 10^6/uL (4.20-5.40); Red Cell Dist. Width 16.4 % (11.5-14.5); White Blood Cell Count 5.2 10^3/uL (4.8-10.8)
[2024-04-02] MEDS: LASIX 40 MG PO (10:11)
[2024-04-02 10:45] LABS: Albumin 2.5 g/dl (3.5-5.0); Blood Urea Nitrogen 29 mg/dl (7-17); Calcium 9.5 mg/dl (8.4-10.2); Carbon Dioxide 25 mmol/L (22-30); Chloride 103 mmol/L (98-107); Estimated Creatinine Clearance 46 ml/min; Glucose 161 mg/dl (70-99); Phosphorus 3.9 mg/dl (2.5-4.5); Potassium 4.1 mmol/L (3.5-5.1); Sodium 141 mmol/L (135-145); eGFR > 60.00
--- NOTE | 2024-04-02 10:46 | W.PN.CARDCBS ---
Addendum entered and electronically signed by Sukhwinder Wesley MD 04/02/24 17:11:
I saw and examined the patient.
The INSTRUMENT MAKER or PA's note was reviewed and I agree with the note.
Comment: General: Well developed, well nourished in NAD.
Neck: Supple, no JVD, HJR, carotids +2 B/L, no bruits bilaterally.
Heart: Non displaced PMI, RRR, no murmurs, No S3, S4, no rubs.
Lungs: Scattered rhonchi
Extremities: No clubbing, cyanosis or edema bilaterally.
Neuro: Grossly nonfocal, awake, alert and oriented x3.
Stable cardiology status for discharge on Lasix 40 mg daily. Discussed with primary service. Farxiga and Jardiance too costly
Original Note:
Today's Communication / Plan
-
Lasix 40 mg daily
New to Coreg and Entresto as well
Stable for d/c
Impression / Plan
-
Primary Veterans Contact Representative: Dr. MONE Blank
Assessment:
Presentation with shortness of breath, lower extremity edema
Acute hypoxic respiratory insufficiency
Acute on chronic HFrEF
Anemia, with history of iron deficiency
Elevated troponin, nonischemic myocardial injury in the setting of acute CHF
History of recovered nonischemic cardiomyopathy with recurrence, EF 25-30% by echo 03/28/24
Nonobstructive CAD by cath 03/31/24
Mild to moderate MR
Chronic left bundle branch block
Hypertension
Hyperlipidemia
Myasthenia gravis
GERD
Arthritis
ECHO 09/03/13: EF 45%, mild concentric LVH, mild global hypokinesis, mild to moderate MR, MAC, left atrial dilatation, mild TR
ECHO 09/22/21: EF 55 to 60%, mild concentric LVH, stage I diastolic dysfunction, mild to moderate MR, mild TR
ECHO 03/28/24: EF 25 to 30%, global hypokinesis with septal wall dyskinesis, severely dilated left atrium, mild MS with mean gradient 7 mmHg, severe MR, moderate TR, PAP 50 mmHg, IVC mildly dilated
Plan:
-Patient with acute HF on admission and a h/o NICM with recovered EF, btu on repeat echo 03/28/24 her EF was down again to 25-30%.
-Weight is down 10 lbs with Lasix 40 mg IV daily, will transition to Lasix 40 mg PO daily for d/c. Patient was not taking a diuretic prior to admission.
-EF 25% by echo. GDMT with Coreg 3.125 mg BID started this admission.
-New to Entresto 24/26 mg BID as well.
-Patient declines initiation of Farxiga due to cost of $100/month, but will continue to consider as an outpatient and we can discuss again at her upcoming HF appt
-Spironolactone started and stopped this admission due to hypotension
-Nonobstructive CAD by cath 03/31/24
-Right radial LHC site with ecchymosis, but no hematoma. Right brachial vein RHC access site with ecchymosis, but no hematoma.
-Patient declined cardiac rehab and was counseled on the benefits of cardiac rehab.
-Recheck echo in 90 days and re-eval MR at that time as well
-Discussed that pending 90 day echo patient might be a candidate for RADIOGRAPHER ANGIOGRAM-D and she did not outright decline.
-Patient asking about alternatives to medical management of CM and then turned down the suggestion of cardiac rehab and rebuffed the no ETOH recommendation. Patient is interested in following the recommended salt and fluid restriction.
-Patient is stable for d/c to home
Progress Note - Veterans Contact Representative
Subjective
Date of Service: April 02, 2024
Feels well and wants to go home
Objective
Labs:
04/02/24 09:39
04/02/24 09:39
Labs
Hgb 10.3 g/dL (12.0-16.0) L 04/02/24 09:39
Hct 34.6 % (37.0-47.0) L 04/02/24 09:39
Plt Count 403 10^3/uL (130-400) H D 04/02/24 09:39
Sodium 141 mmol/L (135-145) 04/02/24 09:39
Potassium 4.1 mmol/L (3.5-5.1) 04/02/24 09:39
BUN 29 mg/dl (7-17) H 04/02/24 09:39
Creatinine 0.9 mg/dL (0.6-1.0) 04/02/24 09:39
Glucose 161 mg/dl (70-99) H 04/02/24 09:39
Vital Signs and I&O:
Vital Signs
Temp Pulse Resp BP Pulse Ox
97.8 F 98 18 123/65 96
04/02/24 08:00 04/02/24 08:00 04/02/24 08:00 04/02/24 08:00 04/02/24 08:00
Vital Signs
Temp Pulse Resp BP Pulse Ox
97.8 F 98 18 123/65 96
04/02/24 08:00 04/02/24 08:00 04/02/24 08:00 04/02/24 08:00 04/02/24 08:00
Intake & Output
03/31/24 04/01/24 04/02/24 04/03/24
06:59 06:59 06:59 06:59
Intake Total 600 / 600 600 / 600 720 / 720
Balance 600 / 600 600 / 600 720 / 720
Physical Exam
Physical Exam
Gen: NAD, AAOx3
HEENT: MMM
CV: Reg
Lungs: No audible wheeze
Abd: ND
Ext: No LE edema
Skin: Warm, dry
Neuro: Non-focal
[2024-04-02 11:02] VITALS: PULSE 104; PULSE 98; O2SAT 97
--- NOTE | 2024-04-02 12:10 | W.DCSUMMARY ---
Discharge Summary
Discharge Data
Date of Admission: 03/27/24
Date of Discharge: 04/02/24
-
Pending Results: No
Hospital Course
Discharge diagnosis:
Acute hypoxic respiratory failure
Acute heart failure with reduced ejection fraction
Troponin elevation from nonischemic myocardial injury
Nonischemic cardiomyopathy
Chronic iron deficiency anemia
Gastroesophageal reflux disease
Osteoarthritis
Chronic back pain
Myasthenia gravis
Consults: Cardiology
Echocardiogram:
Left ventricle is moderately dilated.
Moderately reduced left ventricular systolic function.
Left ventricular ejection fraction is 25-30% by Louis's method of discs.
Global hypokinesis with septal wall dyskinesis.
Severely dilated left atrium.
Indexed LA volume is severely abnormal (> 48 mL/m2).
Mild mitral stenosis.
Mean gradient across the mitral valve is 7mmHg.
Severe mitral regurgitation.
Moderate tricuspid regurgitation.
Estimated pulmonary artery pressure of 50 mmHg assuming a right atrial pressure
of 8 mmHg.
The IVC is mildly dilated.
Compared to 2021 echocardiogram in our system EF% is now moderately reduced and
there is severe mitral regurgitation
Cardiac catheterization 03/30/2024
1. Nonobstructive coronary disease
2. Elevated left ventricular filling pressures
Hospital course:
73-year-old female with a past medical history of nonischemic cardiomyopathy, heart failure with a reduced ejection fraction, and myasthenia gravis was admitted for acute hypoxic respiratory failure secondary to acute heart failure with a reduced
ejection fraction. Patient initially required as much as 5-6 L of oxygen. She was seen in conjunction with cardiology, and diuresed with IV Lasix. She underwent cardiac catheterization showing nonobstructive coronary artery disease.
Echocardiogram shows an ejection fraction of 25-30%. She was started on Entresto, Coreg, and aspirin 81 mg daily. Patient declines initiation of Farxiga due to cost of $100/month. Cardiology is looking into starting her on Jardiance or Farxiga in
the office.
Patient diuresed quite well. She was transitioned from IV Lasix to Lasix 40 mg p.o. daily. She was completely weaned off of her oxygen. She is medically stable and cleared by cardiology for discharge. She needs to follow-up with cardiology in
the office, and her primary care doctor in 1 week.
Disposition: Home with home care
Discharge planning: Required 40 minutes
Discharge Plan
-
Patient Disposition: Home with Home Care
Discharge Diagnosis/Procedures: Congestive heart failure, cardiac catheterization, iron deficiency anemia
Condition: Fair
Diet: Low Sodium and Restrict fluids to 64 oz
Activity: As tolerated
Driving Restrictions: As prior to admission
Specialty Instructions: Weigh Daily- Call MD for wt gain/loss 3 lbs overnight/5 lbs in 1 week
Activity Restrictions/Additional Instructions:
Note to [facility] (if receiving home care through [facility]):
Initiate the [facility] Diuretic Protocol
Instructions: *[facility] Heart Failure Instructions
Stand Alone Forms: DC Instructions- Cath/EP Lab
Referrals:
Christina Patton PA-C [Specified Professional Personl] - 04/18/24 10:40 am (You have cardiology follow-up with Christina Patton PA-C on April 18 at 10:40 AM in [place] [id number] and [facility] which [facility] behind the hospital. If you are unable to make this
appointment please call [phone] to reschedule)
Go Montano DO [Family Provider] - in one week
Prescriptions:
New
furosemide 40 mg Tablet
40 mg PO DAILY Qty: 30 11RF
carvedilol 3.125 mg Tablet
3.125 mg PO BID Qty: 60 11RF
aspirin 81 mg Tablet,Chewable
81 mg PO DAILY Qty: 30 0RF
Entresto 24-26 mg Tablet
1 tab PO BID Qty: 60 11RF
Continued
Tylenol Arthritis
1,000 mg PO Q6H PRN (Reason: mild pain)
Discharge Orders:
Discharge Patient (As Directed); Ordered 04/02/24
Ordered By: Jaydon Rodríguez
Discharge Date and Time
Discharge Date/Time: 04/02/24 14:48
Print Language: MACEDONIAN
--- NOTE | 2024-04-02 12:45 | CM ---
machining manager reviewed patient's chart and plan is to home with spouse at discharge, onsite case manager was asked to check on cost of Farxiga and cost is $100 per month. Cardiology made aware.
Plan; Home no needs when stable.
[2024-04-02 14:00] VITALS: BP 110/50
--- NOTE | 2024-04-03 10:56 | W.HF.CON ---
Heart Failure
- LV Function
Left ventricular function study result: LV Ejection fraction </= 35%
Ejection Fraction Percentage: 25-30
- ARNI
Patient already on ARNI: Yes
- ACEI/ARB
Patient already on ACEI/ARB: No
Heart Failure ACEI/ARB Not Indicated: Patient ordered/on ARNI
- Beta Justyn
Patient already on Evidence Based Beta Justyn: Yes
- Mineralocorticord Receptor Antagonist
Patient already on MRA: No
Heart Failure MRA Contraindication: Hypotension
- SGLT-2 Inhibitor
Patient already on SGLT-2 Inhibitor: No
Heart Failure SGLT-2 Inhibitor Contraindication: Patient Refusal
- NYHA CHF Classification
NYHA CHF Classification Level: Class III - Symptoms w/ min exertion, interferes w/ nml daily activity
- ACC/AHA Stage
ACC/AHA Stage: Stage C: Symptomatic Heart Failure
== END 2024-04-02 14:48 | disposition home or self-care (01) | DRG 286 ==
LOC: 4 WEST ACU 23:05
PROVIDERS: Emergency Medicine; Internal Medicine; Internal Medicine Cardiovascular Disease; Internal Medicine Interventional Cardiology; Nurse Practitioner; ADMITTING PHYSICIAN Internal Medicine; ATTENDING PHYSICIAN Family Medicine; EMERGENCY PHYSICIAN Emergency Medicine; FAMILY PHYSICIAN Family Medicine; OTHER PHYSICIAN Internal Medicine Cardiovascular Disease
PROC: 5A0935A Assistance with Respiratory Ventilation, Less than 24 Consecutive Hours, High Flow/Velocity Cannula (ICD-10-PCS; 2024-03-28)
PROC: 4A023N6 Measurement of Cardiac Sampling and Pressure, Right Heart, Percutaneous Approach (ICD-10-PCS; 2024-03-30)
PROC: B2111ZZ Fluoroscopy of Multiple Coronary Arteries using Low Osmolar Contrast (ICD-10-PCS; 2024-03-30)
DX: I11.0 Hypertensive heart disease with heart failure (principal); I50.23 Acute on chronic systolic (congestive) heart failure; J96.01 Acute respiratory failure with hypoxia; D50.9 Iron deficiency anemia, unspecified; I08.1 Rheumatic disorders of both mitral and tricuspid valves; I5A Non-ischemic myocardial injury (non-traumatic); Z66 Do not resuscitate; I42.0 Dilated cardiomyopathy; G70.00 Myasthenia gravis without (acute) exacerbation; I25.10 Atherosclerotic heart disease of native coronary artery without angina pectoris; E78.00 Pure hypercholesterolemia, unspecified; G89.29 Other chronic pain; M54.9 Dorsalgia, unspecified; I44.7 Left bundle-branch block, unspecified; K21.9 Gastro-esophageal reflux disease without esophagitis; M19.90 Unspecified osteoarthritis, unspecified site; T45.4X6A Underdosing of iron and its compounds, initial encounter; Z91.148 Patient's other noncompliance with medication regimen for other reason; Z79.82 Long term (current) use of aspirin; Z79.899 Other long term (current) drug therapy; Z90.710 Acquired absence of both cervix and uterus
CPT/HCPCS: 71046; 80048; 80053; 80061; 80069; 82607; 82728; 82746; 83540; 83550; 83735; 83880; 84443; 84484; 85025; 85027; 86041; 87502; 87811; 93005; 93306; 93456; 96374; 97116; 97163; 97530; 99285; C1894; Q9967

== ENCOUNTER → 2024-04-18 10:51 | Outpatient (REF) | payer OTHER, SELFPAY ==
[2024-04-18 13:26] LABS: Blood Urea Nitrogen 29 mg/dl (7-17); Calcium 9.5 mg/dl (8.4-10.2); Carbon Dioxide 23 mmol/L (22-30); Chloride 103 mmol/L (98-107); Glucose 98 mg/dl (70-99); Potassium 4.6 mmol/L (3.5-5.1); Sodium 141 mmol/L (135-145); eGFR > 60.00
== END ==
LOC: REG 10:51
PROVIDERS: ATTENDING PHYSICIAN Physician Assistant Medical; FAMILY PHYSICIAN Family Medicine
DX: I50.20 Unspecified systolic (congestive) heart failure (principal)
CPT/HCPCS: 36415; 80048

== ENCOUNTER → 2024-08-06 07:19 | Outpatient (REF) | payer MEDICARE, SELFPAY ==
[2024-08-06 08:55] LABS: Blood Urea Nitrogen 28 mg/dl (7-17); Calcium 9.4 mg/dl (8.4-10.2); Carbon Dioxide 31 mmol/L (22-30); Chloride 102 mmol/L (98-107); Glucose 92 mg/dl (70-99); Potassium 4.2 mmol/L (3.5-5.1); Sodium 139 mmol/L (135-145); eGFR 52.73
== END ==
LOC: REG 07:19
PROVIDERS: ATTENDING PHYSICIAN Internal Medicine Cardiovascular Disease; FAMILY PHYSICIAN Family Medicine
DX: I50.20 Unspecified systolic (congestive) heart failure (principal)
CPT/HCPCS: 36415; 80048

== ENCOUNTER → 2024-09-26 11:05 | Outpatient (REF) | payer MEDICARE, SELFPAY | LOC: HWRCS 11:05 | PROVIDERS: ATTENDING PHYSICIAN Internal Medicine Cardiovascular Disease; FAMILY PHYSICIAN Family Medicine | DX: I42.8 Other cardiomyopathies (principal) | CPT/HCPCS: 93306 ==

== ENCOUNTER → 2025-04-01 10:51 | Outpatient (REF) | payer MEDICARE, SELFPAY | LOC: HWRCS 10:51 | PROVIDERS: ATTENDING PHYSICIAN Internal Medicine Cardiovascular Disease; FAMILY PHYSICIAN Family Medicine | DX: I42.8 Other cardiomyopathies (principal) | CPT/HCPCS: 93306 ==

== ENCOUNTER → 2025-06-03 07:17 | Outpatient (REF) | payer MEDICARE, SELFPAY ==
[2025-06-03 08:18] LABS: Blood Urea Nitrogen 23 mg/dl (7-17); Calcium 9.2 mg/dl (8.4-10.2); Carbon Dioxide 27 mmol/L (22-30); Chloride 103 mmol/L (98-107); Glucose 97 mg/dl (70-99); Potassium 3.9 mmol/L (3.5-5.1); Sodium 138 mmol/L (135-145); eGFR > 60.00
== END ==
LOC: REG 07:17
PROVIDERS: ATTENDING PHYSICIAN Internal Medicine Cardiovascular Disease
DX: I10 Essential (primary) hypertension (principal)
CPT/HCPCS: 36415; 80048